=== PATIENT | male | born 1950 | race Asian ===

== ENCOUNTER 2016-11-07 16:27 | Outpatient (CLI) | payer OTHER ==
[~2016-11-07 16:27] MED LIST: AMLO10TA PO; ENALAPRIL20 MG PO; METO50TA27 PO; PRAVACHOL80 MG PO; QUETIAPINE25 MG OR; RANI150T78 PO
== END 2016-11-07 23:40 | disposition home or self-care (01) ==
LOC: LAB 16:27
DX: L02.31 Cutaneous abscess of buttock (principal)
CPT/HCPCS: 87070; 87077; 87185; 87186; 87205

== ENCOUNTER 2017-01-17 11:00 | Outpatient (CLI) | payer OTHER ==
[2017-01-17 12:30] LABS: PLATELET COUNT 194 K/uL (142-355)
[2017-01-17 14:02] LABS: POTASSIUM 4.8 mmol/L (3.6-5.2)
== END 2017-01-17 12:00 | disposition home or self-care (01) ==
LOC: LABW 11:00
PROVIDERS: Internal Medicine
DX: I10 Essential (primary) hypertension (principal); M25.561 Pain in right knee
CPT/HCPCS: 36415; 80053; 80061; 80307; 81000; 84443; 85027; G0479

== ENCOUNTER 2018-02-05 11:48 | Outpatient (CLI) | payer OTHER ==
[2018-02-05 12:13] LABS: PLATELET COUNT 223 K/uL (142-355)
[2018-02-05 12:58] LABS: POTASSIUM 4.6 mmol/L (3.6-5.2)
== END 2018-02-05 22:31 | disposition home or self-care (01) ==
LOC: LABW 11:48
PROVIDERS: Internal Medicine
DX: I10 Essential (primary) hypertension (principal); N40.0 Benign prostatic hyperplasia without lower urinary tract symptoms
CPT/HCPCS: 36415; 80053; 80061; 81000; 84153; 84443; 85027

== ENCOUNTER 2018-03-08 13:48 | Outpatient (CLI) | payer OTHER | END 2018-03-08 19:25 | disposition home or self-care (01) | LOC: CT 13:48 | DX: R41.82 Altered mental status, unspecified (principal) ==

== ENCOUNTER 2019-02-06 09:31 | Outpatient (CLI) | payer OTHER ==
[2019-02-06 10:04] LABS: PLATELET COUNT 215 K/uL (142-355)
[2019-02-06 10:16] LABS: POTASSIUM 4.2 mmol/L (3.6-5.2)
== END 2019-02-06 21:00 | disposition home or self-care (01) ==
LOC: LABW 09:31
PROVIDERS: Internal Medicine
DX: I10 Essential (primary) hypertension (principal); N40.0 Benign prostatic hyperplasia without lower urinary tract symptoms
CPT/HCPCS: 36415; 80053; 80061; 81000; 84153; 84439; 84443; 85027

== ENCOUNTER 2019-05-13 10:13 | Outpatient (CLI) | payer OTHER | END 2019-05-13 23:44 | disposition home or self-care (01) | LOC: LABW 10:13 | PROVIDERS: Internal Medicine | DX: E78.00 Pure hypercholesterolemia, unspecified (principal) | CPT/HCPCS: 36415; 80061; 80076 ==

== ENCOUNTER 2019-07-15 10:12 | Outpatient (CLI) | payer OTHER ==
[2019-07-15] MEDS ORDERED: PRAVACHOL80 MG PO (10:33)
[2019-07-15] MEDS ORDERED: QUETIAPINE25 MG PO (10:33)
[2019-07-15] MEDS ORDERED: TAMSULOSIN0.4 MG PO (10:34)
[2019-07-15] MEDS ORDERED: AMLODIPINE BESYLATE PO (10:36)
[2019-07-15] MEDS ORDERED: MELOXICAM7.5 MG PO (10:36)
== END 2019-07-15 10:14 | disposition short-term general hospital (02) ==
LOC: AMB 10:12
DX: R07.1 Chest pain on breathing (principal); R09.89 Other specified symptoms and signs involving the circulatory and respiratory systems
CPT/HCPCS: A0425; A0427

== ENCOUNTER 2019-07-15 10:15 | Inpatient (IN) | payer OTHER ==
[~2019-07-15] VITALS: Ht 182.9 cm; Wt 96.6 kg
[2019-07-15] VITALS (11 sets, daily range): BP systolic 103–132; BP diastolic 56–85; TEMP 97.9–98.4; Ht 182.9 cm; Wt 96.6 kg
[2019-07-15] MEDS ORDERED: PRAVACHOL80 MG PO (10:33)
[2019-07-15] MEDS ORDERED: QUETIAPINE25 MG PO (10:33)
[2019-07-15] MEDS ORDERED: TAMSULOSIN0.4 MG PO (10:34)
[2019-07-15] MEDS ORDERED: MELOXICAM7.5 MG PO (10:36)
[2019-07-15] MEDS ORDERED: AMLODIPINE BESYLATE PO (10:36)
[2019-07-15 10:50] LABS: POTASSIUM 3.8 mmol/L (3.6-5.2); SODIUM 142 mmol/L (136-145)
[2019-07-15 12:48] LABS: PLATELET COUNT 241 K/uL (142-355)
[2019-07-16] VITALS: BP 122/70; TEMP 97.8
[2019-07-16 04:00] VITALS: BP 72/47; TEMP 97.9
[2019-07-16 08:00] VITALS: BP 118/51; TEMP 98.6
[2019-07-16 12:00] VITALS: BP 100/69; TEMP 97.8
== END 2019-07-16 14:25 | disposition short-term general hospital (02) | DRG 194 ==
LOC: ED 10:20 → MED/SURG 14:15
PROVIDERS: ADMIT Family Medicine
DX: J18.8 Other pneumonia, unspecified organism (principal); J90 Pleural effusion, not elsewhere classified; F31.89 Other bipolar disorder; F80.1 Expressive language disorder; I69.320 Aphasia following cerebral infarction; I10 Essential (primary) hypertension
CPT/HCPCS: 80053; 81000; 82550; 84484; 85027; 85610; 85730; 87040; 87899; 93005; 94640; 94664; 94760; 96365; 99284; J0456; J0696; J1940; Q9963

== ENCOUNTER 2019-07-16 14:30 | Outpatient (CLI) | payer OTHER ==
[~2019-07-16 14:30] MED LIST changes: +AMLODIPINE BESYLATE PO; +MELOXICAM7.5 MG PO; +QUETIAPINE25 MG PO; +TAMSULOSIN0.4 MG PO
== END 2019-07-16 15:43 | disposition short-term general hospital (02) ==
LOC: AMB 14:30
DX: J18.8 Other pneumonia, unspecified organism (principal)
CPT/HCPCS: A0425; A0429